=== PATIENT | male | born 1965 | race Caucasian/White ===

== ENCOUNTER 2017-03-16 08:34 | Inpatient (IN) ==
[2017-03-16] MEDS ORDERED: SALINE FLUSH 10ml SYRINGE IVF PRN (09:03)
[2017-03-16] MEDS ORDERED: NS 1,000 ML IV ONE ×2 (09:05→10:01)
--- NOTE | 2017-03-16 09:06 | Emergency Department Report ---
General Adult HPI - General Chief complaint: Medical Emergency Stated complaint: weakness Time Seen by Provider: 03/16/17 09:03 Source: patient, family Mode of arrival: ambulatory Limitations: no limitations - History of Present Illness HPI narrative: 51-year-old male presents to the emergency department with a chief complaint of nausea, vomiting, and diarrhea. Patient also is being followed by Dr. Sweeney for drainage of a fluid collection to the right thigh and groin. He is currently on Keflex for this. Patient noted onset of symptoms approximately 10 days ago. He denies any current pain or discomfort. He was at home when his symptoms began. Symptoms have been persistent in nature since onset. Patient states that the diarrhea and vomiting has slowed over the past couple days but he still feels lightheaded whenever he goes to ambulate. No other complaints or associated symptoms. - Related Data Home Medications Medication Instructions Recorded Confirmed Simvastatin 20 mg PO HS #0 10/28/13 03/16/17 Metoprolol Succinate 100 mg PO HS #90 07/02/15 03/16/17 Loratadine [Claritin] 10 mg PO HS 02/11/17 03/16/17 Aspirin [Low Dose Aspirin EC] 81 mg PO HS 03/16/17 03/16/17 Hyzaar 20/25mg 1 tab PO DAILY 03/16/17 03/16/17 Ondansetron HCl [Ondansetron HCl] 8 mg PO BID PRN 03/16/17 03/16/17 Pantoprazole Tab [Protonix Tab] 40 mg PO ACB 03/16/17 03/16/17 cephALEXin [Cephalexin] 500 mg PO QID 03/16/17 03/16/17 Allergies Allergy/AdvReac Type Severity Reaction Status Date / Time No Known Drug Allergies Allergy Unknown Verified 03/16/17 09:48 Review of Systems Constitutional: Denies: fever, chills Eyes: Denies: eye pain, vision change ENT: Denies: ear pain, throat pain Cardiovascular: Denies: chest pain, palpitations Respiratory: Denies: cough, dyspnea Gastrointestinal: Reports: nausea, vomiting, diarrhea. Denies: abdominal pain Genitourinary: Denies: urgency, dysuria Musculoskeletal: Denies: back pain, arthralgia Integumentary: Denies: erythema, rash Neurological: Denies: headache, numbness Psychiatric: Denies: anxiety, depression Endocrine: Denies: fatigue, heat or cold intolerance Hematological/Lymphatic: Denies: easy bleeding, easy bruising Allergic/Immunologic: Denies: facial swelling, urticaria PFSH Patient Stated Medical History Hypertension Yes Bronchitis Yes Diabetes Mellitus Type 2 "BORDERLINE" Gastroesophageal Reflux Yes Disease Clinic Medical History (Last Updated 03/09/17 @ 11:52 by Nataly Moran APRN) GERD (gastroesophageal reflux disease) (Acute Medical) HTN (hypertension) (Acute Medical) Surgical History: Denies surgical history Family History: Reviewed and noncontributory - Social History Smoking status: Never smoker Substance use type: does not use Alcohol intake frequency: does not drink Physical Exam - Limitations Limitations: no limitations - General General appearance: alert, in no apparent distress - Normal Exams: Head:: Normocephalic without trauma Eyes:: Pupils are PERRLA w/ EOMI, No scleral icterus, irritation, or foreign bodies noted ENMT:: No facial trauma, nasal exudates, pharyngeal erythema, or exudates are noted Dental: No fractured, loose, or missing teeth noted Neck:: Full range of motion, without adenopathy, JVD, bruits or thyromegaly Chest/Respirations:: Clear all flowers, with good airflow, and symmetry bilaterally Cardiovascular:: Regular rate and rhythm, without murmur or gallop, Pulses 2+ all extremities, capillary refill, <2 seconds all extremities Abdomen:: Bowel sounds positive, soft, non-tender, non-distended, no hepatosplenomegaly, masses or bruits noted Lymphatic:: No lymphadenopathy, or lymphedema noted Musculoskeletal:: No tenderness, or deformity noted, good range of motion, all extremities Integumentary:: No rashes, hives, or bruising noted, hair and nails, without abnormality (soft mildly erythematous and warm area to palpation in the left groin consistent with abscess that the patient has been undergoing treatment in the past. No lymphangitis or extending cellulitis.) Neurological:: Patient is alert, and oriented, cranial nerves, motor/sensory/ cerebellar, exams w/o gross deficits, to observation Psychiatric:: Patient exhibits, appropriate attention, emotion and affect Course Vital Signs Temperature 98.7 F 03/16/17 08:39 Pulse Rate 90 03/16/17 08:39 Respiratory Rate 20 03/16/17 08:39 Blood Pressure 95/54 12/20/17 08:39 Pulse Oximetry 100 03/16/17 08:39 Temperature 96.9 F 03/16/17 11:55 Pulse Rate 75 03/16/17 11:55 Respiratory Rate 20 03/16/17 11:55 Blood Pressure 112/62 03/16/17 11:55 Pulse Oximetry 100 03/16/17 11:55 Medical Decision Making - MDM Narrative Medical decision making narrative: Labs/imaging were discussed in detail with the patient and family and questions were answered. Patient was given 2 L of normal saline intravenously in the emergency department. Zosyn 4.5 g IV times one was started at 1045 when sepsis was considered. Patient was admitted to the service of Dr. Farris in improved condition. Patient declined offered analgesic pain medication. No further orders from accepting physician is in agreement with the current plan of management. Patient will be monitored for acute kidney injury and potential abscess to the groin. Dr. Reed will handle his own surgical consultation to Dr. Sweeney. Patient is admitted to the hospital in improved condition. Zosyn 4.5 g IV times one was started at 1045 when sepsis was considered. Patient did not have a lactate greater than 4 and was not truly hypotensive in the ED. - Differential Diagnosis abscess, viral syndrome, metabolic process, dehydration - Lab Data Result diagrams: 03/16/17 09:23 03/16/17 09:19 Lab Results 03/16/17 03/16/17 03/16/17 Range/Units 09:15 09:19 09:19 WBC (4.5-11.0) T/MM3 RBC (4.50-5.90) M/MM3 Hgb (13.5-17.5) GM/DL Hct (41-53) % MCV (80-100) UM3 MCH (26-34) UUG MCHC (31-37) GM/DL RDW Std Deviation (36.9-50.2) FL Plt Count (130-400) T/MM3 MPV (9.4-12.4) UM3 Immature Gran % (Auto) (0.0-0.5) % Neut % (Auto) (33-66) % Lymph % (Auto) (23-45) % [place] % (Auto) (0-9.0) % Eos % (Auto) (0-4) % Baso % (Auto) (0-2) % Neut # (Auto) (1.8-7.7) T/MM3 Lymph # (Auto) (1-4.8) T/MM3 [place] # (Auto) (0-0.8) T/MM3 Eos # (Auto) (0-0.5) T/MM3 Baso # (Auto) (0-0.2) T/MM3 Abs Immat Gran (auto) (0.00-0.03) T/MM3 Turbidity < 20 (0-20) Sodium 130 L (134-144) MEQ/L Potassium 3.1 L (3.6-5) MEQ/L Chloride 93 L (98-107) MEQ/L Carbon Dioxide 26 (22-30) MEQ/L Anion Gap 11 (5-15) MEQ/L BUN 57.0 H* (9-20) MG/DL Creatinine 2.0 H (0.8-1.5) MG/DL GFR Calculation 35 BUN/Creatinine Ratio 29 H (6-26) RATIO Glucose 132 H (75-110) MG/DL Calculated Osmolality 269 (261-280) MOSM/KG Calcium 8.3 L (8.4-10.2) MG/DL Magnesium 2.7 H (1.6-2.3) MG/DL Total Bilirubin 0.90 (0.20-1.30) MG/DL Icterus Index < 2 (0-7) AST 61 H (17-59) U/L ALT 57 (21-72) U/L Alkaline Phosphatase 69 (38-126) U/L Troponin I < 0.012 (0-0.12) ng/ml Total Protein 7.3 (6.3-8.2) G/DL Albumin 3.5 (3.5-5.0) G/DL Globulin 3.8 H (2.4-3.6) G/DL Albumin/Globulin Ratio 0.9 L (1.1-2.2) RATIO Plasma Lactate 1.4 (0.6-2.2) MMOL/L Procalcitonin 0.81 NG/ML Specimen Hemolysis < 15 (0-25) 12/20/17 Range/Units 09:23 WBC 8.0 (4.5-11.0) T/MM3 RBC 4.15 L (4.50-5.90) M/MM3 Hgb 11.4 L (13.5-17.5) GM/DL Hct 34.3 L (41-53) % MCV 82.7 (80-100) UM3 MCH 27.5 (26-34) UUG MCHC 33.2 (31-37) GM/DL RDW Std Deviation 39.8 (36.9-50.2) FL Plt Count 322 (130-400) T/MM3 MPV 11.1 (9.4-12.4) UM3 Immature Gran % (Auto) 0.4 (0.0-0.5) % Neut % (Auto) 75.7 H (33-66) % Lymph % (Auto) 11.2 L (23-45) % [place] % (Auto) 12.3 H (0-9.0) % Eos % (Auto) 0.1 (0-4) % Baso % (Auto) 0.3 (0-2) % Neut # (Auto) 6.0 (1.8-7.7) T/MM3 Lymph # (Auto) 0.9 L (1-4.8) T/MM3 [place] # (Auto) 1.0 H (0-0.8) T/MM3 Eos # (Auto) 0.0 (0-0.5) T/MM3 Baso # (Auto) 0.0 (0-0.2) T/MM3 Abs Immat Gran (auto) 0.03 (0.00-0.03) T/MM3 Turbidity (0-20) Sodium (134-144) MEQ/L Potassium (3.6-5) MEQ/L Chloride (98-107) MEQ/L Carbon Dioxide (22-30) MEQ/L Anion Gap (5-15) MEQ/L BUN (9-20) MG/DL Creatinine (0.8-1.5) MG/DL GFR Calculation BUN/Creatinine Ratio (6-26) RATIO Glucose (75-110) MG/DL Calculated Osmolality (261-280) MOSM/KG Calcium (8.4-10.2) MG/DL Magnesium (1.6-2.3) MG/DL Total Bilirubin (0.20-1.30) MG/DL Icterus Index (0-7) AST (17-59) U/L ALT (21-72) U/L Alkaline Phosphatase (38-126) U/L Troponin I (0-0.12) ng/ml Total Protein (6.3-8.2) G/DL Albumin (3.5-5.0) G/DL Globulin (2.4-3.6) G/DL Albumin/Globulin Ratio (1.1-2.2) RATIO Plasma Lactate (0.6-2.2) MMOL/L Procalcitonin NG/ML Specimen Hemolysis (0-25) - Radiology Data CXR - No acute processes. - EKG Data EKG #1 EKG results narrative: Sinus rhythm. 72 bpm. No STEMI. Disposition Clinical Impression: Dehydration, LUIS M (acute kidney injury) Disposition: 02 To [facility] Condition: Stable Time of Disposition: 10:40 (Admit. Dr. Farris. ) - Seen By: physician
--- NOTE | 2017-03-16 09:19 | XRay Report ---
Indication: vomiting PROCEDURE: XR chest 1V: Encounter: Initial Comparison: June 16, 2014 FINDINGS: Exam is in apical lordotic position. The lungs are clear. There is no abnormal airspace opacity, pleural effusion or pneumothorax identified. The heart size, pulmonary vasculature and mediastinum are within normal limits. No significant skeletal abnormality is seen. IMPRESSION: No acute cardiopulmonary abnormality. .
[2017-03-16] MEDS ORDERED: PIPERACILLIN/TAZOBACTAM 4.5 GM in NS 100 ML IV ONE (10:45)
--- NOTE | 2017-03-16 11:14 | History & Physical Report ---
History of Present Illness Date: 03/16/17 Chief complaint: LUIS M, Dehydration, Hypokalemia HPI: Savage is a 51 yr old male who unfortunately had a injury to his pelvis when he was pinned to a trailer on 01/20/17 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 He has continued to have wound care treatment in the outpatient setting under the care of Dr. Sweeney. He has been on Keflex since 03/09/17 for ongoing erythema to the left groin/lower abdominal area. He reports that overall wound is healing well and continues to improve. Over the past 1.5-2 weeks, he has had nausea, upper respiratory congestion and coughing. Overall, has been unable to take in oral foods, however, is tolerating oral liquids. He was seen at primary care at [facility] approximately a week ago. However, it was felt that this was a viral illness in nature and no treatment was given at that time. Today he reports having dizziness and weakness and felt like he was dehydrated, thus he presented to the emergency room for evaluation. WBC normal at 8.0. Hemoglobin 11.4, neutrophils 75%. He was found to be low at 130, potassium 3.1, BUN 57, creatinine 2.0. Creatinine appears to be 0.6- 0.9. Is given IV fluids 1 liter, however, continues to have blood pressures in the 90s systolic. Needs electrolyte changes, accompanied with decreased oral intake. The hospitalist services were contacted and accepted patient for outpatient observation for further evaluation and treatment. Review of Systems All systems PM: 10-point ROS was reviewed, no additional remarkable complaints except - Constitutional Constitutional: Present: anorexia, fatigue, malaise - Respiratory Respiratory: Present: cough Respiratory Comments: URI congestion - Gastrointestinal Gastrointestinal: Present: nausea - Integumentary/Breasts Integumentary Comments: Left peritoneal erythema- post-trauma from 02/2017- stable [facility] Patient Stated Medical History Hypertension Diabetes Mellitus Type 2 - "Borderline" GERD Crush injury to peritoneum with ongoing wound-12/2016 Surgical History: Denies surgical history Family History: Mother- COPD Father- [place] in his 40's - Social History Smoking status: Never smoker Substance use type: does not use Alcohol intake: current Alcohol intake frequency: 3 or more drinks per day Household members: spouse Current residence: Apartment/Private Home 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 Pena Medications Home Medications Medication Instructions Recorded Confirmed Type Simvastatin 20 mg PO HS #0 10/28/13 03/16/17 History Metoprolol Succinate 100 mg PO HS #90 07/02/15 03/16/17 History Loratadine [Claritin] 10 mg PO HS 02/11/17 03/16/17 History Aspirin [Low Dose Aspirin EC] 81 mg PO HS 03/16/17 03/16/17 History Hyzaar 20/25mg 1 tab PO DAILY 03/16/17 03/16/17 History Ondansetron HCl [Ondansetron HCl] 8 mg PO BID PRN 03/16/17 03/16/17 History Pantoprazole Tab [Protonix Tab] 40 mg PO ACB 03/16/17 03/16/17 History cephALEXin [Cephalexin] 500 mg PO QID 03/16/17 03/16/17 History Allergies Allergy/AdvReac Type Severity Reaction Status Date / Time No Known Drug Allergies Allergy Unknown Verified 03/16/17 09:48 Exam Vital Signs: Temperature 98.7 F 03/16/17 08:39 Pulse Rate 73 03/16/17 10:15 Respiratory Rate 20 03/16/17 08:39 Blood Pressure 92/55 03/16/17 10:15 Pulse Oximetry 100 03/16/17 10:15 Height/Weight/BMI: Height 1.83 m Weight 109.1 kg - Constitutional Present: no acute distress, well nourished, well developed - Routine HEENT Exam Eye: Present: EOMI ENT: Present: mucous membranes moist, dentition normal - Routine Respiratory Exam Present: CTA bilaterally. Absent: wheezes - Routine Cardiovascular Exam Present: RRR, S1, S2. Absent: murmur - Routine Abdominal Exam Present: soft, normoactive bowel sounds, non distended. Absent: tenderness - Routine Exam Groin: Present: tenderness, swelling, erythema Perineal: Present: erythema Comments: Chronic left peritoneal erythema and swelling, tender on palpation-stable - Routine Extremities Exam Present: normal capillary refill - Routine Back/Spine/Pelvis Exam Back/Spine: Present: full ROM - Routine Skin Exam Present: intact, dry, warm - Routine Neurological Exam Present: alert, oriented X3, CN II-XII intact, moving all extremities - Routine Psychiatric Exam Present: normal affect Results - Labs CBC & Chem 7: 03/16/17 09:23 03/16/17 09:19 Microbiology Results: Microbiology 03/16/17 09:18 Peripheral/Iv Start Blood Culture - Preliminary Culture Initiated - Results Pending 03/16/17 09:23 Peripheral/Iv Start Blood Culture - Preliminary Culture Initiated - Results Pending Assessment and Plan (1) LUIS M (acute kidney injury) Current visit: Yes Status: Acute (2) Hyponatremia Current visit: Yes Status: Acute (3) Hypokalemia Current visit: Yes Status: Acute (4) Hypovolemia Current visit: Yes Status: Acute (5) Hypotension Current visit: Yes Status: Acute (6) HTN (hypertension) Current visit: Yes Status: Chronic (7) Injury of groin Current visit: Yes Status: Chronic Assessment and Plan: Impression Acute kidney injury-creatinine 2.0 on admission, baseline 0.6-0.8 Hypokalemia-present on admission-3.1 Hyponatremia-present on admission- 130 Hypovolemia [id number] systolic on admission 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 Reed for acute kidney injury, hypovolemia with electrolyte abnormalities. Patient did receive 1 liter of normal saline while in the emergency room. Will continue with normal saline with 40 of KCl at 150 ML per hour for ongoing hydration. Will also replace orally 40 Meq BID Obtain serial magnesium on admission. Given ongoing respiratory illness, will check for influenza A/B. He was started on IV Zosyn for continued treatment of groin wound. Did reveal past culture from 01/31/17 which did reveal staph aureus, group G strep and Corynebacterium which is pansensitive other than ampicillin. Monitor BGM as patient reports he is "borderline diabetic". Will obtain A1C. Patient may have clear liquid diet, Zofran available as needed for nausea. Given hypotension ,we will place home Hyzaar and metoprolol on hold. SCDs to bilateral lower extremity for DVT prophylaxis Monitor vital signs every 4 hours Check CBC and BMP tomorrow morning to follow blood counts, renal function and electrolytes Will discuss further orders and plan of care with attending, Dr. Reed. At time of discharge medical care will return to primary care provider, Dr. Colby DVT Prophylaxis: SCD's Resuscitation Status: Full Code - Physician Narrative Physician: Can Reed MD Narrative: Date: 03/16/17 Time: 1107 Have independently interviewed and examined pt. Chart reviewed. Case discussed with ED physician and my PUMP TENDER. Care plan developed with my supervision; agree with above. Had viral syndrome (describes as 'flu') starting about 7 days ago. Feeling very achy, weak, and decreased appetite. Some n/v and slight loose stools. Blood pressure at home decreased-has been decreasing his BP medication and even not taking it as BP low. Appetite starting to improve-able to keep liquids in. No further episodes of diarrhea. Does not slight cough but not SOA. However, still feeling very weak and unsteady-much more unsteady with positional changes. Presents to ED for evaluation. Creatinine has increased from 0.6 to 2.0 in the past several days. Sodium/potassium low. CXR unremarkable. Placed in OBS for hydration therapy. Lungs: decreased, upper airway noises. No distress CV: regular AB: soft nt/nd +BS MSE: awake alert appropriate Plan: OBS admission. IVF of NS with KCl to improve hydration. Magnesium check and not decreased. Will recheck BMP later this afternoon to monitor sodium and potassium SCD for DVT prevention. HOLD ARB secondary to LUIS M and low blood pressures. Care to return to Dr [place] at [place] [facility] Hospital Course Summary Disclaimer: The visit summary below is not to be considered part of the above Progress Note. 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 Reed for acute kidney injury, hypovolemia with electrolyte abnormalities. Patient did receive 1 liter of normal saline while in the emergency room. Will continue with normal saline with 40 of KCl at 150 ML per hour for ongoing hydration. Will also replace orally 40 Meq BID Obtain serial magnesium on admission. Given ongoing respiratory illness, will check for influenza A/B. He was started on IV Zosyn for continued treatment of groin wound. Did reveal past culture from 01/31/17 which did reveal staph aureus, group G strep and Corynebacterium which is pansensitive other than ampicillin. Monitor BGM as patient reports he is "borderline diabetic". Will obtain A1C. Patient may have clear liquid diet, Zofran available as needed for nausea. been Given hypotension ,we will place home Hyzaar and metoprolol on hold. SCDs to bilateral lower extremity for DVT prophylaxis Monitor vital signs every 4 hours Check CBC and BMP tomorrow morning to follow blood counts, renal function and electrolytes Will discuss further orders and plan of care with attending, Dr. Reed. At time of discharge medical care will return to primary care provider, Dr. Colby
[2017-03-16] MEDS ORDERED: ONDANSETRON 4 MG/2 ML INJECTION IVP PRN ×2 (11:50→13:15)
[2017-03-16 11:57] VITALS: BMI 33.0
[2017-03-16] MEDS ORDERED: POTASSIUM CHLORIDE INJ 40 MEQ in NS 1,000 ML IV SCH (12:00)
[2017-03-16] MEDS: ACETAMINOPHEN 500 MG TABLET PO SCH ×4 (13:03→23:37)
[2017-03-16] MEDS ORDERED: NS 1,000 ML IV SCH (13:15)
[2017-03-16] MEDS: PIPERACILLIN/TAZOBACTAM 3.375 GM in NS 100 ML IV SCH ×2 (17:28→23:17)
[2017-03-16] MEDS: SIMVASTATIN 20 MG TABLET PO SCH (21:01)
[2017-03-16] MEDS: POTASSIUM CHLORIDE INJ 40 MEQ in NS 1,000 ML IV SCH (23:16)
[2017-03-17] MEDS: ACETAMINOPHEN 500 MG TABLET PO SCH ×5 (04:54→21:27)
[2017-03-17] MEDS: PIPERACILLIN/TAZOBACTAM 3.375 GM in NS 100 ML IV SCH ×3 (04:54→18:13)
[2017-03-17] MEDS: PANTOPRAZOLE 40 MG TABLET PO SCH (06:52)
[2017-03-17] MEDS: POTASSIUM CHLORIDE INJ 40 MEQ in NS 1,000 ML IV SCH ×2 (08:52→16:16)
--- NOTE | 2017-03-17 15:15 | Progress Note ---
- Date 03/17/17 Subjective: Savage is seen several times throughout the day. This morning he reports that he was feeling good and eager to be home. He is eating and drinking without difficulty. Later in the day he is seen again after ambulating and he does report having some mild dizziness with ambulation. He also reports having a bowel movement this morning that "may" have had some dark in color. Objective Vital signs: Temperature 97.8 F 03/17/17 12:00 Pulse Rate 72 03/17/17 12:00 Respiratory Rate 18 03/17/17 12:00 Blood Pressure 89/55 03/17/17 14:51 Pulse Oximetry 99 03/17/17 12:00 Height/Weight/BMI: Height 1.83 m Weight 112.8 kg Body Mass Index 33.0 - Constitutional Present: no acute distress, well nourished, well developed - Routine HEENT Exam Eye: Present: EOMI ENT: Present: mucous membranes moist, dentition normal - Routine Respiratory Exam Present: CTA bilaterally. Absent: wheezes - Routine Cardiovascular Exam Present: RRR, S1, S2. Absent: murmur - Routine Abdominal Exam Present: soft, normoactive bowel sounds, non distended. Absent: tenderness - Routine Exam Genitals image: 1 - chronic swelling and erythema Groin: Present: swelling, erythema - Routine Extremities Exam Present: normal capillary refill - Routine Skin Exam Present: intact, dry, warm - Routine Neurological Exam Present: alert, oriented X3, CN II-XII intact - Routine Lymphatic Exam Lymphatic: Absent: adenopathy - Routine Psychiatric Exam Present: normal affect, cooperative Results - Labs CBC & Chem 7: 03/17/17 04:30 03/17/17 04:30 Assessment and Plan (1) LUIS M (acute kidney injury) Current visit: Yes Status: Acute (2) Hyponatremia Current visit: Yes Status: Acute (3) Hypokalemia Current visit: Yes Status: Acute (4) Hypovolemia Current visit: Yes Status: Acute (5) Hypotension Current visit: Yes Status: Acute (6) HTN (hypertension) Current visit: Yes Status: Chronic (7) Injury of groin Current visit: Yes Status: Chronic Assessment and Plan: Impression Acute kidney injury-creatinine 2.0 on admission, baseline 0.6-0.8 Hypokalemia-present on admission-3.1 Hyponatremia-present on admission- 130 Hypovolemia [id number] systolic on admission 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 Will continue with IV Fluids- NS at 100ml/hr. Will plan to keep patient overnight for further hydration due to continued symptomatic orthostatsis. Will change status to inpatient status given persistent orthostasis despite observation treatment Rectal exam and stool or occult obtained and sent to lab. Concern for Anemia and GI bleeding. Risk factors include NSAID and ETOH use. Continue with Zosyn IV for antimicrobial coverage of chronic pelvic wound. Was on Keflex at home. Will recheck CBC and BMP tomorrow morning Case discussed with Dr Hawkins 03/17/2017-I reviewed this chart, the patient history, and the SOFTWARE ENGINEER KERNEL's/PA's documented findings as above. We discussed and formulated the assessment and plan as above with the additions below.-Dr. Hawkins The patient was seen this afternoon in his room. He states he was a little lightheaded when getting up. He is eating and drinking better. He is no longer having diarrhea. He states he had a formed stool that was brown but could've had some black in it. He states when he was having diarrhea it was dark but he is uncertain if it was actually black. When he was having nausea he had dry heaves but never vomited anything up. He also states that he has not drank any alcohol in the past 2 months since his injury. He denies any abdominal pain. On exam he is alert and in no acute distress. Chest is clear to auscultation. Cardiac vascular reveals a regular rate and rhythm. Abdomen is soft and nontender. He continues to have swelling in the left groin where he had a hematoma. Impression and plan Acute kidney injury is improving but not yet back to baseline Hypokalemia has resolved Hyponatremia has resolved The patient does have orthostatic hypotension-will give another liter of IV fluids, encourage by mouth intake. Anemia with borderline low MCV. Dropped during this hospitalization is likely hemodilution. Will check iron panel, B-12 and folate. Rectal exam and Hemoccult were performed today by my DESIGN EDITOR and Hemoccult was negative. Recheck CBC and basic metabolic profile tomorrow. Discussed with case management, will change to inpatient status due to symptomatic orthostatic hypotension not resolved with IV fluids as an outpatient. - Physician Narrative Narrative: Date: 03/17/17 Time: 1511 Hospital Course Summary Disclaimer: The visit summary below is not to be considered part of the above Progress Note. 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 Reed for acute kidney injury, hypovolemia with electrolyte abnormalities. Patient did receive 1 liter of normal saline while in the emergency room. Will continue with normal saline with 40 of KCl at 150 ML per hour for ongoing hydration. Will also replace orally 40 Meq BID Obtain serial magnesium on admission. Given ongoing respiratory illness, will check for influenza A/B. He was started on IV Zosyn for continued treatment of groin wound. Did reveal past culture from 01/31/17 which did reveal staph aureus, group G strep and Corynebacterium which is pansensitive other than ampicillin. Monitor BGM as patient reports he is "borderline diabetic". Will obtain A1C. Patient may have clear liquid diet, Zofran available as needed for nausea. been Given hypotension ,we will place home Hyzaar and metoprolol on hold. SCDs to bilateral lower extremity for DVT prophylaxis Monitor vital signs every 4 hours Check CBC and BMP tomorrow morning to follow blood counts, renal function and electrolytes Will discuss further orders and plan of care with attending, Dr. Reed. At time of discharge medical care will return to primary care provider, Dr. Colby 03/17/17 Plan Orthostatics do decrease 106/71 systolic laying to 89/55 when standing. Will continue with IV Fluids- NS at 100ml/hr. Will plan to keep patient overnight for further hydration due to continued symptomatic orthostatsis. Will change status to inpatient status given persistent orthostasis despite observation treatment Rectal exam and stool or occult obtained and sent to lab. Concern for Anemia and GI bleeding. Risk factors include NSAID and ETOH use. Continue with Zosyn IV for antimicrobial coverage of chronic pelvic wound. Was on Keflex at home. Will recheck CBC and BMP tomorrow morning Case discussed with Dr Hawkins
[2017-03-17] MEDS: NS 1,000 ML IV SCH (16:36)
[2017-03-17] MEDS: SIMVASTATIN 20 MG TABLET PO SCH (21:27)
[2017-03-18] MEDS: PIPERACILLIN/TAZOBACTAM 3.375 GM in NS 100 ML IV SCH ×4 (00:20→17:34)
[2017-03-18] MEDS: ACETAMINOPHEN 500 MG TABLET PO SCH ×5 (00:21→17:26)
[2017-03-18] MEDS: PANTOPRAZOLE 40 MG TABLET PO SCH (06:17)
[2017-03-18 07:38] VITALS: RESP 18; TEMP 98.1
[2017-03-18] MEDS: NS 1,000 ML IV SCH ×3 (09:41→11:37)
--- NOTE | 2017-03-18 11:43 | Progress Note ---
- Date 03/18/17 Subjective: Savage had orthostatics assessed again and BP and HR both changed from 121/73 and 69 lying to 99/67 and 93 sitting to 93/56 and 91 standing. He was feeling a little lightheaded during this assessment but not much more than he would at home. He denied chest pain, sweating, dyspnea, near-syncope, headache, or visual changes. No nausea or vomiting; had a bowel movement this am. He and his both report increasing fluid collection in his groin - he missed his appt with Dr. Sweeney on admission and has questions about management. Objective Vital signs: Temperature 98.1 F 03/18/17 07:36 Pulse Rate 91 03/18/17 09:47 Respiratory Rate 18 03/18/17 07:36 Blood Pressure 93/56 03/18/17 09:47 Pulse Oximetry 99 03/18/17 07:36 Height/Weight/BMI: Weight 113 kg - Constitutional Present: no acute distress, well nourished, well developed, obese - Routine HEENT Exam Head: Present: normocephalic ENT: Present: mucous membranes moist. Absent: dentition normal (missing some teeth) - Routine Respiratory Exam Present: CTA bilaterally - Routine Cardiovascular Exam Present: RRR, S1, S2 - Routine Abdominal Exam Present: soft, normoactive bowel sounds - Routine Extremities Exam Present: no edema, pulses intact - Routine Musculoskeletal Exam Musculoskeletal: Present: moving extremities well - Routine Skin Exam Present: intact, dry, warm - Routine Neurological Exam Present: alert, oriented X3, CN II-XII intact, normal speech - Routine Psychiatric Exam Present: normal affect, normal thought process, cooperative Results - Labs CBC & Chem 7: 03/18/17 04:42 03/18/17 04:42 Assessment and Plan (1) LUIS M (acute kidney injury) Current visit: Yes Status: Acute (2) Hyponatremia Current visit: Yes Status: Acute (3) Hypokalemia Current visit: Yes Status: Acute (4) Hypovolemia Current visit: Yes Status: Acute (5) Hypotension Current visit: Yes Status: Acute (6) Injury of groin Current visit: Yes Status: Chronic Assessment and Plan: Impression Orthostatic hypotension Hypovolemia Acute kidney injury-creatinine 2.0 on admission, baseline 0.6-0.8, resolved Hypokalemia-present on admission (3.1), resolved Hyponatremia-present on admission (130), resolved 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 Drop of 28 mm Hg in systolic BP and increase in pulse by 22 beats from lying to standing. Both Savage and his have questions about resuming BP meds at home - he takes Hyzaar and metoprolol. They do have a BP cuff at home for monitoring. Hgb decreased slightly to 10.2; iron/B12/folate studies pending. Reports increased fluid collection to crush injury site; continue Zosyn and d/w Dr. Sweeney - he is checking out, so consult will need to go to on-call surgeon. LUIS M and electrolyte abnormalities have resolved and creatinine is back to baseline. D/W Dr. Hawkins -1L NS bolus over 2 hours for orthostasis -Consult Dr. Cho - he will come by and see Savage this afternoon. 03/18/2017-I reviewed this chart, the patient history, and the TUBING SUPERVISOR's/PA's documented findings as above. We discussed and formulated the assessment and plan as above with the additions below.-Dr. Hawkins The patient is feeling better after IV fluid bolus. Blood pressure drops only from 137/75-120/72. He states he is not lightheaded any longer with standing. Heart rate does increase from 80 to lying and sitting to 102 standing, but he thinks this is secondary to pain in his groin which hurts worse when he stands up. He is feeling quite well and feels ready for discharge. Please see discharge summary. - Physician Narrative Narrative: Date: 03/18/17 Time: 1127 Hospital Course Summary Disclaimer: The visit summary below is not to be considered part of the above Progress Note. 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 Reed for acute kidney injury, hypovolemia with electrolyte abnormalities. Patient did receive 1 liter of normal saline while in the emergency room. Will continue with normal saline with 40 of KCl at 150 ML per hour for ongoing hydration. Will also replace orally 40 Meq BID Obtain serial magnesium on admission. Given ongoing respiratory illness, will check for influenza A/B. He was started on IV Zosyn for continued treatment of groin wound. Did reveal past culture from 01/31/17 which did reveal staph aureus, group G strep and Corynebacterium which is pansensitive other than ampicillin. Monitor BGM as patient reports he is "borderline diabetic". Will obtain A1C. Patient may have clear liquid diet, Zofran available as needed for nausea. been Given hypotension ,we will place home Hyzaar and metoprolol on hold. SCDs to bilateral lower extremity for DVT prophylaxis Monitor vital signs every 4 hours Check CBC and BMP tomorrow morning to follow blood counts, renal function and electrolytes Will discuss further orders and plan of care with attending, Dr. Reed. At time of discharge medical care will return to primary care provider, Dr. Colby 03/17/17 Plan Orthostatics do decrease 106/71 systolic laying to 89/55 when standing. Will continue with IV Fluids- NS at 100ml/hr. Will plan to keep patient overnight for further hydration due to continued symptomatic orthostatsis. Will change status to inpatient status given persistent orthostasis despite observation treatment Rectal exam and stool or occult obtained and sent to lab. Concern for Anemia and GI bleeding. Risk factors include NSAID and ETOH use. Continue with Zosyn IV for antimicrobial coverage of chronic pelvic wound. Was on Keflex at home. Will recheck CBC and BMP tomorrow morning Case discussed with Dr Hawkins 03/18/17 Still orthostatic with mild lightheadedness with change of positions. Drop of 28 mm Hg in systolic BP and increase in pulse by 22 beats from lying to standing. 1L NS bolus ordered. Hgb decreased slightly to 10.2; iron/B12/folate studies pending. Reports increased fluid collection to crush injury site; Dr. Cho consulted. LUIS M and electrolyte abnormalities have resolved and creatinine is back to baseline.
[2017-03-18] MEDS ORDERED: NS 1,000 ML IV ONE (13:31)
[2017-03-18 17:44] VITALS: O2SAT 99
[2017-03-18 17:47] VITALS: BP 120/72; PULSE 102
--- NOTE | 2017-03-18 18:43 | Discharge Summary ---
Discharge Information Date of admission: 03/17/17 15:54 Anticipated date of discharge: 03/18/17 Attending Physician: Christiane Hawkins MD Primary care physician: Darius Paniagua MD Consults: 03/18/17 13:32 Physician Consult [CONS] Routine Consulting Provider: Sy Cho Reason For Exam: wound swelling Ordering Provider has Notified Collision Mechanic: Yes - Discharge Diagnosis (1) LUIS M (acute kidney injury) Status: Acute (2) Hyponatremia Status: Acute (3) Hypokalemia Status: Acute (4) Hypovolemia Status: Acute (5) Hypotension Status: Acute (6) Injury of groin Status: Chronic Orthostatic hypotension Hypovolemia Acute kidney injury-creatinine 2.0 on admission, baseline 0.6-0.8, resolved Hypokalemia-present on admission (3.1), resolved Hyponatremia-present on admission (130), resolved 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 Type II diabetes- "Borderline" Hypertension History of daily alcohol use - none since injury in December anemia with borderline low MCV - Laboratory Labs: 03/18/17 04:42 03/18/17 04:42 Laboratory Tests 03/16/17 03/16/17 03/17/17 09:19 09:23 04:30 Hgb 11.4 L 10.5 L Sodium 130 L Potassium 3.1 L BUN 57.0 H* Creatinine 2.0 H Stool Occult Blood 03/17/17 03/18/17 15:04 04:42 Hgb 10.2 L Sodium Potassium BUN Creatinine Stool Occult Blood Negative - Microbiology Blood cultures 2 negative after 2 days - Radiology Radiology: Chest x-ray on 03/16/2017 showed no acute cardiopulmonary abnormalities History of Present Illness HPI: Savage is a 51 yr old male who unfortunately had a injury to his pelvis when he was pinned to a trailer on 01/20/17 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 He has continued to have wound care treatment in the outpatient setting under the care of Dr. Sweeney. He has been on Keflex since 03/09/17 for ongoing erythema to the left groin/lower abdominal area. He reports that overall wound is healing well and continues to improve. Over the past 1.5-2 weeks, he has had nausea, upper respiratory congestion and coughing. Overall, has been unable to take in oral foods, however, is tolerating oral liquids. He was seen at primary care at [facility] approximately a week ago. However, it was felt that this was a viral illness in nature and no treatment was given at that time. Today he reports having dizziness and weakness and felt like he was dehydrated, thus he presented to the emergency room for evaluation. WBC normal at 8.0. Hemoglobin 11.4, neutrophils 75%. He was found to be low at 130, potassium 3.1, BUN 57, creatinine 2.0. Creatinine appears to be 0.6- 0.9. Is given IV fluids 1 liter, however, continues to have blood pressures in the 90s systolic. Needs electrolyte changes, accompanied with decreased oral intake. The hospitalist services were contacted and accepted patient for outpatient observation for further evaluation and treatment. Objective Vital signs: Temperature 98.1 F 03/18/17 13:00 Pulse Rate 102 H 03/18/17 17:46 Respiratory Rate 18 03/18/17 17:00 Blood Pressure 120/72 03/18/17 17:46 Pulse Oximetry 99 03/18/17 17:46 Height/Weight/BMI: Weight 113 kg Hospital Course This is a general summary of the patient's hospital course. For more details refer to the complete medical record. 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 Reed for acute kidney injury, hypovolemia with electrolyte abnormalities. Patient did receive 1 liter of normal saline while in the emergency room. Will continue with normal saline with 40 of KCl at 150 ML per hour for ongoing hydration. Will also replace orally 40 Meq BID Obtain serial magnesium on admission. Given ongoing respiratory illness, will check for influenza A/B. He was started on IV Zosyn for continued treatment of groin wound. Did reveal past culture from 01/31/17 which did reveal staph aureus, group G strep and Corynebacterium which is pansensitive other than ampicillin. Monitor BGM as patient reports he is "borderline diabetic". Will obtain A1C. Patient may have clear liquid diet, Zofran available as needed for nausea. been Given hypotension ,we will place home Hyzaar and metoprolol on hold. SCDs to bilateral lower extremity for DVT prophylaxis Monitor vital signs every 4 hours Check CBC and BMP tomorrow morning to follow blood counts, renal function and electrolytes Will discuss further orders and plan of care with attending, Dr. Reed. At time of discharge medical care will return to primary care provider, Dr. Colby 03/17/17 Plan Orthostatics do decrease 106/71 systolic laying to 89/55 when standing. Will continue with IV Fluids- NS at 100ml/hr. Will plan to keep patient overnight for further hydration due to continued symptomatic orthostatsis. Will change status to inpatient status given persistent orthostasis despite observation treatment Rectal exam and stool or occult obtained and sent to lab. Concern for Anemia and GI bleeding. Risk factors include NSAID and ETOH use. Continue with Zosyn IV for antimicrobial coverage of chronic pelvic wound. Was on Keflex at home. Will recheck CBC and BMP tomorrow morning Case discussed with Dr Hawkins 03/18/17 Still orthostatic with mild lightheadedness with change of positions. Drop of 28 mm Hg in systolic BP and increase in pulse by 22 beats from lying to standing. 1L NS bolus ordered. Hgb decreased slightly to 10.2; iron/B12/folate studies pending. Reports increased fluid collection to crush injury site; Dr. Cho consulted. LUIS M and electrolyte abnormalities have resolved and creatinine is back to baseline. 03/18/2017 Patient received another 1 L of IV fluids. Blood pressure lying is 137/75 with a pulse of 82. Sitting blood pressure 128/77 with a pulse of 82. Lying blood pressure 120/72 with a pulse of 102. The patient denied any further lightheadedness when getting up out of bed. He does state that he has pain in his groin with standing and he thinks this is why his heart rate goes up when he stands up. He is overall feeling much better and feels ready for dismissal to home. Regarding his orthostatic hypotension, this seems to be better after fluid resuscitation. He will remain off of his Hyzaar and metoprolol for now. He is to check his blood pressure daily at home. If blood pressures are running high or if they are low, he should notify Dr. Colby. Dr. Cho did evaluate the patient's chronic groin wound and felt no changes were needed. The patient will be discharged on cephalexin. If he has problems over the next one week with his groin wound, he is to notify Dr. Cho. He is to follow-up with Dr. Sweeney in 1 week. He is follow-up with Dr. Paniagua next week. The patient does have pending lab including iron panel, B-12 and folate regarding his anemia. Blood cultures are negative after 2 days. Time spent with patient: discharge greater than 30 minutes Discharge Plan - Discharge Disposition Discharge Date: 03/18/17 Disposition: 01 Discharged Home, Self-Care *Condition: Stable Reason For Visit (Visit label in EMR): orthostatic hypotension, dehydration, LUIS M - Discharge Medications *Discharge Medications: Continue Simvastatin 20 mg PO HS #0 Loratadine [Claritin] 10 mg PO HS Ondansetron HCl 8 mg PO BID PRN PRN Reason: Nausea Aspirin [Low Dose Aspirin EC] 81 mg PO HS cephALEXin [Cephalexin] 500 mg PO QID Pantoprazole Tab [Protonix Tab] 40 mg PO ACB Discontinued Metoprolol Succinate 100 mg PO HS #90 Hyzaar 20/25mg 1 tab PO DAILY - Discharge Packet/Instructions *Diet: Diet as tolerated *Activity: Light activity as tolerated *Pain Management/Treatment: Tylenol as needed for pain *Wound Care: Follow-up with Dr. Sweeney in 1 week. If you have any problems with your wound in the next 1 week, call Dr. Cho who is on-call for Dr. Sweeney *Expected Signs/Symptoms: Mild fatigue *Notify Physician if: Notify your doctor if you have lightheadedness, recurrence of vomiting, diarrhea, increasing pain or swelling in your groin, or fevers. *During Business Hours Contact: Call Dr. Paniagua's office *After Business Hours Contact: Called [phone] Colby or Dr[address] Sweeney or Dr. Cho *Pending Lab/Results: Follow up w/your PCP - Referrals/Follow Up - Patient Handouts Physician Narrative - Narrative Attestation Narrative: Date: 03/18/17 Time: 7237
--- NOTE | 2017-03-19 09:51 | Consultation ---
DATE OF CONSULTATION 03/18/2017 HISTORY This patient is 51 years old. This patient was straddling a trailer hitch on when he unhooked the trailer hitch from the truck. The hitch of the trailer then swung up and struck the patient in the perineum. The patient did later report that the trailer hitch "stuck him into the ceiling of his milk barn." The patient was then able to "wiggle myself out of the ceiling." The patient then came to [facility] on 01/20/2017 for further evaluation. The patient appeared to have an injury at the perineum and scrotum and medial aspect of the left thigh. The patient was transferred from [facility] on 01/20/[address] [facility] for further evaluation to rule out a urethral injury. The patient was hospitalized for about two days at [facility] and then discharged from [facility]. The patient then had several visits at the [facility] for treatment of an open wound at the left pubic symphysis region. The patient then came to [facility] on 02/11/2017 stating that he was having increased swelling at the scrotum and medial aspect of the left thigh. The patient was seen in consultation at the emergency room by Dr. Sweeney on 02/11/2017. The patient appeared to have a large fluid collection at the medial aspect of the left thigh. Dr. Sweeney did aspirate approximately 1100 ml of seroma fluid from the medial aspect of the left thigh using a 60 ml syringe and 18-gauge needle on 02/11/2017 at the emergency room. The patient was thought to have a hematoma at the medial aspect of the left thigh with some seroma present in association with this hematoma. Dr. Sweeney did subsequently see the patient several times with a recurrent seroma at the medial aspect of the left thigh. The patient did have a significant hematoma involving the left side of the scrotum and the medial aspect of the left thigh. This was aspirated multiple times by Dr. Sweeney. Dr. Sweeney did aspirate 680 ml of serosanguineous fluid from the medial aspect of the left thigh on 02/22/2017. The plan after this was for the patient to undergo placement of a percutaneous drainage catheter into the left thigh by the Radiology Department at [facility] to provide continuous drainage of the recurrent seroma at the medial aspect the left thigh. By this time, the hematoma at the medial aspect the left thigh had been drained on several occasions by Dr. Sweeney with 500-900 ml of bloody serosanguineous fluid being aspirated each time. The patient did undergo percutaneous drain placement at the medial aspect the left thigh with ultrasound guidance on 02/24/[address] Enoc Briscoe at the Imaging Department at [facility]. The patient did have approximately 830 ml of serosanguineous fluid aspirated from the fluid collection at this time. A drainage catheter was left in place at the seroma cavity. The patient did have the drain in place at the seroma cavity at the medial aspect of the left thigh from 02/24/2017 until 03/09/2017. The patient had an office visit with Dr. Sweeney on 03/09/2017. The drain had stopped draining at the time of this office visit on 03/09/2017. Dr. Sweeney did strip the drain several times but was unable to get any fluid to come out through the drain. Dr. Sweeney did use a syringe and 18-gauge needle and did attempt aspiration of the area of swelling at the medial aspect the left thigh multiple times at the office visit on 03/09/2017 but was not able to get any significant fluid aspirated from the area of swelling at the medial aspect of the left thigh at this time. The patient was scheduled for a followup office visit with Dr. Sweeney on to recheck the area of swelling at the medial aspect of the left thigh. The patient was, however, admitted to [facility] from the emergency room on 03/16/2017 for treatment of dehydration and acute kidney injury. The patient has been hospitalized at [facility] from 03/16/2017 to 2016. The patient has had some orthostatic hypotension which is still being treated. The patient has had some hypovolemia. The patient did give a history to Alexia Kaur APRN earlier today that he thought that there was some increased swelling at the medial aspect of the left thigh. When I talked with the patient and his today, they state that the amount of swelling at the medial aspect of the left thigh is about the same as it was at the time of the office visit with Dr. Sweeney on 03/09/2017. The patient is not having any increased pain at this area. He is not concerned about any infection at this area. He does continue to have residual swelling at this area but it does not sound as if this has changed a great deal since . PHYSICAL EXAMINATION VITAL SIGNS: Temperature is 98.1 degrees Fahrenheit oral. Pulse is 76. Respiratory rate is 18. Blood pressure is 131/84. Oxygen saturation is 99% on room air. EXTERNAL GENITALIA: The patient does have some residual edema at the penis. The patient has some residual swelling at the left side of the scrotum. EXTREMITIES: There is swelling at the medial aspect of the left thigh compared to the right side. There is no redness over this area or tenderness to suggest any infection. LABORATORY DATA White blood cell count is 8500 today. Hemoglobin is 10.2. Hematocrit is 32.5. IMPRESSION Resolving seroma/hematoma at medial aspect of the left thigh following blunt trauma to the left side of the scrotum and medial aspect of the left thigh on . RECOMMENDATIONS 1. Continued observation of the resolving hematoma at the medial aspect of the left thigh. 2. Followup office visit with Dr. Sweeney to continue to monitor resolution of the process at the medial aspect of the left thigh. 3. I did tell the patient that if he has any further concerns or if the appearance at the medial aspect the left thigh seems to worsen in any way that I would be happy to see him to reevaluate this area between now and the next time that he can get in to see Dr. Sweeney. [facility]
== END 2017-03-18 19:40 | disposition home or self-care (01) | DRG 683 ==
LOC: MED 08:34 → ED 08:34 → SUATTDRO 10:46 → MED 11:55
PROVIDERS: ADMIT Hospitalist; ATTEND Internal Medicine